=== PATIENT | male | born 1995 | race Two or more races ===

== ENCOUNTER 2017-09-21 06:46 | Emergency (ER) | payer OTHER ==
[2017-09-21 07:27] VITALS: TEMP 98; BMI 29.0
[2017-09-21] MEDS ORDERED: FAMOTIDINE 20 MG/50 ML IVPB 20 MG/50 ML MG IVPB ONE ×2 (07:42→08:12)
[2017-09-21] MEDS ORDERED: MAG HYDROX/AL HYDROX/SIMETH 355 ML ORAL.SUSP PO ONE (07:42)
[2017-09-21] MEDS ORDERED: SODIUM CHLORIDE 1,000 ML IV STA (07:42)
[2017-09-21] MEDS ORDERED: ONDANSETRON 4 MG/2 ML VIAL IVPUSH ONE (07:42)
--- NOTE | 2017-09-21 07:48 | PDOC ---
History of Present Illness - General Chief Complaint: Pain Stated Complaint: ABDOMINAL PAIN Time Seen by Provider: 09/21/17 07:35 History Source: Patient - History of Present Illness Timing/Duration: reports: getting worse Quality: reports: severe, cramping Abdominal Pain Onset Location: reports: generalized abdomen Past History - Past Medical History Allergies/Adverse Reactions: Allergies Allergy/AdvReac Type Severity Reaction Status Date / Time No Known Allergies Allergy Verified 09/21/17 07:27 Home Medications: Ambulatory Orders Famotidine [Pepcid] 20 mg PO DAILY #7 tablet 09/21/17 Mag Hydrox/Al Hydrox/Simeth [Mylanta Suspension -] 30 ml PO Q6H #1 bottle Polyethylene Glycol 3350 [Miralax (For Daily Use) -] 17 gm PO DAILY #1 bottle COPD: No Other medical history: denies - Suicide/Smoking/Psychosocial Hx Smoking History: Never smoked Information on smoking cessation initiated: No Hx Alcohol Use: No Drug/Substance Use Hx: No Substance Use Type: None Review of Systems - Review of Systems Constitutional: No: Chills, Fever ABD/GI: Yes: Nausea, Vomiting. No: Blood Streaked Bowels, Constipated, Diarrhea , Tarry Stools : No: Dysuria, Flank Pain, Hematuria *Physical Exam - Vital Signs Last Vital Signs Temp Pulse Resp BP Pulse Ox 98 F 89 18 144/85 98 09/21/17 07:25 09/21/17 07:25 09/21/17 07:25 09/21/17 07:25 09/21/17 07:25 - Physical Exam Comments: 09/21/17 07:46 appears uncomfortable General Appearance: Yes: Moderate Distress HEENT: positive: Normal Voice Neck: positive: Supple Respiratory/Chest: negative: Respiratory Distress Gastrointestinal/Abdominal: positive: Tender (to mid lower and LLQ, NT over mcburneys, no ttp to RUQ, no CVAT) Male Genitalia: positive: normal genitalia, discharge. negative: testicular mass Integumentary: positive: Dry, Warm Neurologic: positive: Fully Oriented, Alert, Normal Mood/Affect ED Treatment Course - LABORATORY CBC & Chemistry Diagram: 09/21/17 08:15 09/21/17 08:15 Medical Decision Making - Medical Decision Making 09/21/17 07:44 22-year-old male denies any past medical history here with abdominal pain. Patient reports 3 days of diffuse abdominal cramping that has been mostly constant. States it resolved yesterday, but then recurred this a.m. and getting worse. Has had multiple episodes of nausea, vomiting. Also c/o constipation w/ small hard stool this am but had normal BM 4 days ago. Denies BRBPR, melena, fever, chills, dysuria, hematuria, discharge, testicular pain or swelling. No history of similar symptoms and no unusual food. See exam Abd pain Possible gastritis vs constipation vs atypical appy vs less likely biliary disease vs less likely renal colic vs less likely diverticulitis -GI cocktail>reassess -labs -?CT 09/21/17 07:47 09/21/17 09:11 Wbc of 13, rest of labs unremarkable. Pt continues to c/o pain, Will get CT at this point 09/21/17 11:27 Possible mes[address]eric adenitis on CT, otherwise no acute pathology. Pt feels moderately better w/ meds. Anticipate discharge w/ PMD and possible GI f/u 09/21/17 12:44 Pt feels significantly better and feels well enough to go home. Will f/u with his pmd and GI as needed *DC/Admit/Observation/Transfer Diagnosis at time of Disposition: Abdominal pain Qualifiers: Abdominal location: generalized Qualified Code(s): R10.84 - Generalized abdominal pain - Discharge Dispostion Disposition: HOME Condition at time of disposition: Improved - Prescriptions Prescriptions: Famotidine [Pepcid] 20 mg PO DAILY #7 tablet Mag Hydrox/Al Hydrox/Simeth [Mylanta Suspension -] 30 ml PO Q6H #1 bottle Polyethylene Glycol 3350 [Miralax (For Daily Use) -] 17 gm PO DAILY #1 bottle - Referrals Referrals: Cody Griffiths MD [Primary Care Provider] - Terry Sood MD [Staff Physician] - - Patient Instructions Printed Discharge Instructions: DI for Abdominal Pain-Adult Additional Instructions: The cause of your abdominal pain is unclear at this time. Take medication as needed for pain If symptoms re-occur, follow up with Dr Sood of GI - Post Discharge Activity
[2017-09-21] MEDS ORDERED: MAG HYDROX/AL HYDROX/SIMETH 30 ML UNIT-DOSE CUP ONE (08:11)
[2017-09-21] MEDS ORDERED: ONDANSETRON 4 MG/2 ML VIAL ONE (08:11)
[2017-09-21 08:45] LABS: ALBUMIN 4.5 g/dl (3.4-5.0); ANION GAP 8 (8-16); BASOPHIL 0.2 % (0-2.0); BILIRUBIN,TOTAL 0.3 mg/dL (0.2-1.0); CALCIUM 9.7 mg/dL (8.5-10.1); CO2 29 mmol/L (21-32); EOSINOPHIL 1.7 % (0-4.5); GLUCOSE,RANDOM 95 mg/dL (74-106); MEAN CELL VOLUME 87.9 fl (80-96); MEAN PLT VOLUME 10.5 fl (7.5-11.1); PLATELET COUNT 165 K/MM3 (134-434); RDW 12.9 % (11.9-15.9); SGOT/AST 19 U/L (15-37); SGPT/ALT 33 U/L (12-78); TOT PROT 7.8 g/dl (6.4-8.2); WHITE BLOOD COUNT 13.6 K/mm3 (4.0-10.0)
[2017-09-21 08:46] LABS: ALK PHOS 98 U/L (45-117)
[2017-09-21 09:45] LABS: URINE APPEARANCE CLEAR; URINE BILIRUBIN NEGATIVE (NEGATIVE); URINE BLOOD NEGATIVE (NEGATIVE); URINE COLOR YELLOW; URINE GLUCOSE (UA) NEGATIVE (NEGATIVE); URINE KETONE NEGATIVE (NEGATIVE); URINE NITRITE NEGATIVE (NEGATIVE); URINE PROTEIN NEGATIVE (NEGATIVE); URINE UROBILINOGEN NEGATIVE mg/dL (0.2-1.0)
[2017-09-21] MEDS ORDERED: RANITIDINE HCL 150 MG TABLET (FP) PO ONE (11:27)
[2017-09-21] MEDS ORDERED: KETOROLAC TROMETHAMINE 30 MG/1 ML VIAL IM ONE (11:27)
[2017-09-21] MEDS ORDERED: KETOROLAC TROMETHAMINE 30 MG/1 ML VIAL IVPUSH ONE (11:29)
[2017-09-21] MEDS ORDERED: KETOROLAC TROMETHAMINE 30 MG/1 ML VIAL ONE (11:33)
[2017-09-21] MEDS ORDERED: RANITIDINE HCL 150 MG TABLET (FP) ONE (11:33)
[2017-09-21 12:46] VITALS: BP 137/88; PULSE 82
[2017-09-21 16:47] LABS: URINE LEUK ESTERASE Negative (NEGATIVE)
== END 2017-09-21 12:46 | disposition home or self-care (01) ==
LOC: JER 06:46
PROC: 3E033GC Introduction of Other Therapeutic Substance into Peripheral Vein, Percutaneous Approach (ICD-10-PCS; principal; 2017-09-21)
PROC: 3E0333Z Introduction of Anti-inflammatory into Peripheral Vein, Percutaneous Approach (ICD-10-PCS; 2017-09-21)
PROC: 3E033GC Introduction of Other Therapeutic Substance into Peripheral Vein, Percutaneous Approach (ICD-10-PCS; 2017-09-21)
DX: R10.84 Generalized abdominal pain (principal)
CPT/HCPCS: 36415; 74177-TC; 80053; 81003; 83690; 85025; 96365; 96375; 99283-25

== ENCOUNTER 2022-03-06 19:22 | Inpatient (IN) | payer OTHER ==
[2022-03-06] MEDS ORDERED: LIDOCAINE 5% TOPICAL PATCH TP ONE (19:47)
[2022-03-06] MEDS ORDERED: ACETAMINOPHEN 500 MG TABLET (FP) PO ONE (19:47)
[2022-03-06] MEDS ORDERED: KETOROLAC TROMETHAMINE 30 MG/1 ML VIAL IM ONE (19:47)
[2022-03-06] MEDS ORDERED: KETOROLAC TROMETHAMINE 30 MG/1 ML VIAL ONE (19:54)
[2022-03-06] MEDS ORDERED: LIDOCAINE 5% TOPICAL PATCH ONE (19:54)
[2022-03-06] MEDS ORDERED: ACETAMINOPHEN 500 MG TABLET (FP) ONE (20:02)
[2022-03-06] MEDS ORDERED: SODIUM CHLORIDE 0.9% 500 ML INFUS.BAG IV ONE (22:30)
[2022-03-06 22:38] LABS: BASO % 0.3 % (0-2.0); HEMATOCRIT 46.2 % (35.4-49); HEMOGLOBIN 15.5 GM/dL (11.7-16.9); LYMPH % 19.5 % (8-40); MCH 29.4 pg (25.7-33.7); MCHC 33.6 g/dl (32.0-35.9); MEAN CELL VOLUME 87.5 fl (80-96); MEAN PLT VOLUME 9.9 fl (7.5-11.1); MONO % 6.8 % (3.8-10.2); NEUT % 72.4 % (42.8-82.8); PLATELET COUNT 170 10^3/uL (134-434); RBC 5.28 M/mm3 (4.00-5.60); RDW 13.3 % (11.9-15.9); WHITE BLOOD COUNT 10.4 K/mm3 (4.0-10.0)
[2022-03-06] MEDS: LIDOCAINE PATCH REMOVAL MC SCH (22:43)
[2022-03-06 23:01] LABS: ALBUMIN 4.2 g/dl (3.4-5.0); BLOOD UREA NITROGEN 12.8 mg/dL (7-18); CALCIUM 9.2 mg/dL (8.5-10.1)
[2022-03-06 23:04] LABS: CREATININE 0.9 mg/dL (0.55-1.3)
[2022-03-06 23:06] LABS: BILIRUBIN,TOTAL 0.6 mg/dL (0.2-1); TOT PROT 7.3 g/dl (6.4-8.2)
[2022-03-06] MEDS ORDERED: DEXAMETHASONE SOD PHOSPHATE 10 MG/1 ML VIAL IVPUSH ONE (23:41)
[2022-03-06] MEDS ORDERED: DEXAMETHASONE SOD PHOSPHATE 10 MG/1 ML VIAL ONE (23:45)
[2022-03-07] MEDS ORDERED: VANCOMYCIN 1,000 MG VIAL (RESTRICTED TO ID ONLY) ONE (00:58)
[2022-03-07] MEDS ORDERED: methylPREDNISolone ACET (DEPO) 80 MG/1 ML VIAL ONE (00:58)
[2022-03-07] MEDS ORDERED: THROMBIN (BOVINE) 5,000 UNIT VIAL TP ONE ×2 (00:58→03:39)
[2022-03-07] MEDS ORDERED: BUPIVACAINE HCL/PF 0.5% (5MG/ML) 10 ML VIAL ONE (00:58)
[2022-03-07] MEDS ORDERED: BACITRACIN 15 GM TUBE TOPICAL OINTMENT ONE (00:58)
[2022-03-07] MEDS ORDERED: PROPOFOL 20 ML ONE ×5 (02:33→03:31)
[2022-03-07] MEDS ORDERED: MIDAZOLAM HCL 2 MG/2 ML SINGLE DOSE VIAL ONE (02:33)
[2022-03-07] MEDS ORDERED: ROCURONIUM BROMIDE 50 MG/5 ML SYRINGE ONE ×3 (02:34→02:35)
[2022-03-07 02:45] LABS: INR 0.94 (0.83-1.09); PROTHROMBIN TIME (PATIENT) 10.8 SEC (9.7-13.0)
[2022-03-07] MEDS ORDERED: ceFAZolin SODIUM 1 GM VIAL ONE ×3 (02:47→17:00)
[2022-03-07] MEDS ORDERED: ceFAZolin SODIUM 1 GM VIAL IVPB ONE (02:55)
[2022-03-07] MEDS ORDERED: BENZOIN/ALOE VERA/STORAX/TOLU 58 ML BOTTLE ONE (03:11)
[2022-03-07] MEDS ORDERED: BENZOIN/ALOE VERA/STORAX/TOLU 58 ML BOTTLE TP ONE (03:20)
[2022-03-07] MEDS ORDERED: DEXAMETHASONE SOD PHOSPHATE 4 MG/1 ML VIAL ONE (03:31)
[2022-03-07] MEDS ORDERED: DESFLURANE GAS 240 ML BOTTLE IH ONE (03:34)
[2022-03-07] MEDS ORDERED: ONDANSETRON 4 MG/2 ML VIAL ONE (03:36)
[2022-03-07] MEDS ORDERED: VANCOMYCIN 1 GM in D5W (PRE-DOCKED) 1,000 MG/250 ML IVPB ONE (03:47)
[2022-03-07] MEDS ORDERED: BUPIVACAINE HCL/PF 0.5% (5MG/ML) 10 ML VIAL IJ ONE ×2 (04:12→04:38)
[2022-03-07] MEDS ORDERED: LIDOCAINE HCL/PF 2% SDV 5ML VIAL ONE (04:24)
[2022-03-07] MEDS ORDERED: PHENYLEPHRINE HCL 10 MG/1 ML SINGLE DOSE VIAL ONE (04:28)
[2022-03-07] MEDS ORDERED: NEOSTIGMINE METHYLSULFATE 0.5 MG/1 ML - 10 ML MDV ONE (04:32)
[2022-03-07] MEDS ORDERED: GLYCOPYRROLATE 0.2 MG/1 ML VIAL ONE ×2 (04:32→04:34)
[2022-03-07] MEDS ORDERED: BISACODYL 10 MG SUPP.RECT RC PRN (04:57)
[2022-03-07] MEDS ORDERED: ACETAMINOPHEN 325 MG TABLET (FP) PO PRN (04:57)
[2022-03-07] MEDS ORDERED: ONDANSETRON 4 MG/2 ML VIAL IVPUSH PRN ×2 (04:57→05:53)
[2022-03-07] MEDS ORDERED: D5-1/2NS+20 MEQ KCL - 1,000 ML IV SCH (05:00)
[2022-03-07] MEDS ORDERED: D5-1/2NS+20 MEQ KCL - 20 MEQ/1,000 ML INFUS.BAG IV SCH (05:00)
[2022-03-07] MEDS: HYDROmorphone *PCA* 10MG/50ML DISP.SYRIN PCA SCH (06:00)
[2022-03-07] MEDS ORDERED: LACTATED RINGERS SOLUTION 1,000 ML IV SCH (06:00)
[2022-03-07] MEDS ORDERED: HYDROmorphone *PCA* 10MG/50ML DISP.SYRIN ONE (06:08)
[2022-03-07 06:39] LABS: HEMATOCRIT 46.6 % (35.4-49); HEMOGLOBIN 15.4 GM/dL (11.7-16.9); MCH 29.3 pg (25.7-33.7); MEAN CELL VOLUME 88.6 fl (80-96); MEAN PLT VOLUME 10.2 fl (7.5-11.1); PLATELET COUNT 175 10^3/uL (134-434); RBC 5.26 M/mm3 (4.00-5.60); RDW 13.2 % (11.9-15.9)
[2022-03-07 06:59] LABS: CALCIUM 9.2 mg/dL (8.5-10.1)
[2022-03-07 07:00] LABS: BLOOD UREA NITROGEN 13.3 mg/dL (7-18)
[2022-03-07 07:03] LABS: CREATININE 1.3 mg/dL (0.55-1.3)
[2022-03-07 08:40] VITALS: BMI 34.2
[2022-03-07] MEDS ORDERED: DEXTROSE 5%-WATER - 50 ML IVPB ONE ×2 (09:50→17:00)
[2022-03-07] MEDS: CEFAZOLIN 1 GM in DEXTROSE 5%-WATER - 50 ML IVPB SCH ×2 (10:09→17:57)
[2022-03-07] MEDS: diazePAM 5 MG TABLET PO SCH ×3 (10:10→22:17)
[2022-03-07] MEDS: DOCUSATE SODIUM 100 MG CAPSULE (FP) PO SCH ×3 (10:11→22:17)
[2022-03-07] MEDS: MUPIROCIN 2% TOPICAL OINTMENT FOR DECOLONIZATION NS SCH ×3 (12:58→22:19)
[2022-03-07] MEDS ORDERED: CHLORHEXIDINE GLUCONATE 4% CLEANSER FOR DECOLONIZATION TP SCH (22:00)
[2022-03-07] MEDS: LIDOCAINE PATCH REMOVAL MC SCH (22:17)
[2022-03-08] MEDS ORDERED: ceFAZolin SODIUM 1 GM VIAL ONE (01:33)
[2022-03-08] MEDS ORDERED: DEXTROSE 5%-WATER - 50 ML IVPB ONE (01:33)
[2022-03-08] MEDS: CEFAZOLIN 1 GM in DEXTROSE 5%-WATER - 50 ML IVPB SCH (02:39)
[2022-03-08] MEDS: diazePAM 5 MG TABLET PO SCH ×3 (06:34→21:55)
[2022-03-08] MEDS: DOCUSATE SODIUM 100 MG CAPSULE (FP) PO SCH ×3 (06:34→21:55)
[2022-03-08] MEDS: HYDROmorphone *PCA* 10MG/50ML DISP.SYRIN PCA SCH (06:35)
[2022-03-08 06:58] LABS: BASO % 0.1 % (0-2.0); HEMATOCRIT 43.7 % (35.4-49); HEMOGLOBIN 14.4 GM/dL (11.7-16.9); LYMPH % 19.6 % (8-40); MCH 29.3 pg (25.7-33.7); MEAN CELL VOLUME 88.8 fl (80-96); MONO % 7.4 % (3.8-10.2); NEUT % 72.9 % (42.8-82.8); PLATELET COUNT 171 10^3/uL (134-434); RBC 4.92 M/mm3 (4.00-5.60); RDW 13.5 % (11.9-15.9); WHITE BLOOD COUNT 13.4 K/mm3 (4.0-10.0)
[2022-03-08 07:25] LABS: ALBUMIN 3.6 g/dl (3.4-5.0); CREATININE 0.9 mg/dL (0.55-1.3); MAGNESIUM 2.5 mg/dL (1.8-2.4)
[2022-03-08 07:26] LABS: BILIRUBIN,TOTAL 0.6 mg/dL (0.2-1); TOT PROT 6.4 g/dl (6.4-8.2)
[2022-03-08 07:28] LABS: PHOSPHOROUS 3.7 mg/dL (2.5-4.9)
[2022-03-08] MEDS: MUPIROCIN 2% TOPICAL OINTMENT FOR DECOLONIZATION NS SCH (10:40)
[2022-03-08] MEDS ORDERED: ACETAMINOPHEN 325 MG TABLET (FP) PO PRN (17:43)
[2022-03-08] MEDS ORDERED: BISACODYL 10 MG SUPP.RECT RC PRN (17:43)
[2022-03-08] MEDS ORDERED: D5-1/2NS+20 MEQ KCL - 1,000 ML IV SCH (17:43)
[2022-03-08] MEDS ORDERED: HYDROmorphone *PCA* 10MG/50ML DISP.SYRIN PCA SCH (17:43)
[2022-03-08] MEDS ORDERED: ONDANSETRON 4 MG/2 ML VIAL IVPUSH PRN (17:43)
[2022-03-08] MEDS ORDERED: LIDOCAINE PATCH REMOVAL MC SCH (22:00)
[2022-03-08] MEDS ORDERED: CHLORHEXIDINE GLUCONATE 4% CLEANSER FOR DECOLONIZATION TP SCH (22:00)
[2022-03-09] MEDS: diazePAM 5 MG TABLET PO SCH ×3 (05:53→21:45)
[2022-03-09] MEDS: DOCUSATE SODIUM 100 MG CAPSULE (FP) PO SCH ×3 (05:53→21:45)
[2022-03-09 08:34] LABS: HEMATOCRIT 44.8 % (35.4-49); HEMOGLOBIN 15.2 GM/dL (11.7-16.9); MCH 30.1 pg (25.7-33.7); MCHC 33.8 g/dl (32.0-35.9); MEAN PLT VOLUME 9.4 fl (7.5-11.1); PLATELET COUNT 155 10^3/uL (134-434); RBC 5.03 M/mm3 (4.00-5.60); RDW 13.2 % (11.9-15.9); WHITE BLOOD COUNT 8.5 K/mm3 (4.0-10.0)
[2022-03-09] MEDS ORDERED: oxyCODONE HCL 5 MG TABLET PO PRN (08:54)
[2022-03-09 08:58] LABS: ALBUMIN 3.8 g/dl (3.4-5.0); BLOOD UREA NITROGEN 13.8 mg/dL (7-18); CALCIUM 9.5 mg/dL (8.5-10.1)
[2022-03-09 09:02] LABS: BILIRUBIN,TOTAL 0.6 mg/dL (0.2-1)
[2022-03-10] MEDS: diazePAM 5 MG TABLET PO SCH ×3 (05:27→22:48)
[2022-03-10] MEDS: DOCUSATE SODIUM 100 MG CAPSULE (FP) PO SCH ×3 (05:27→22:48)
[2022-03-10 08:35] LABS: HEMATOCRIT 46.6 % (35.4-49); HEMOGLOBIN 15.5 GM/dL (11.7-16.9); MCH 29.7 pg (25.7-33.7); MCHC 33.2 g/dl (32.0-35.9); MEAN CELL VOLUME 89.3 fl (80-96); MEAN PLT VOLUME 9.5 fl (7.5-11.1); PLATELET COUNT 185 10^3/uL (134-434); RBC 5.21 M/mm3 (4.00-5.60); RDW 13.4 % (11.9-15.9); WHITE BLOOD COUNT 9.4 K/mm3 (4.0-10.0)
[2022-03-10 09:06] LABS: BLOOD UREA NITROGEN 13.8 mg/dL (7-18); CALCIUM 9.6 mg/dL (8.5-10.1)
[2022-03-10 09:12] LABS: BILIRUBIN,TOTAL 0.9 mg/dL (0.2-1); TOT PROT 7.5 g/dl (6.4-8.2)
[2022-03-11] MEDS: DOCUSATE SODIUM 100 MG CAPSULE (FP) PO SCH ×3 (06:05→21:08)
[2022-03-11] MEDS: diazePAM 5 MG TABLET PO SCH ×3 (06:05→21:10)
[2022-03-11 09:46] LABS: HEMATOCRIT 48.5 % (35.4-49); HEMOGLOBIN 16.7 GM/dL (11.7-16.9); MCH 30.3 pg (25.7-33.7); MCHC 34.4 g/dl (32.0-35.9); MEAN CELL VOLUME 88.1 fl (80-96); MEAN PLT VOLUME 9.7 fl (7.5-11.1); PLATELET COUNT 193 10^3/uL (134-434); RDW 13.5 % (11.9-15.9); WHITE BLOOD COUNT 8.4 K/mm3 (4.0-10.0)
[2022-03-11 10:02] LABS: CALCIUM 9.9 mg/dL (8.5-10.1)
[2022-03-11 10:03] LABS: ALBUMIN 4.1 g/dl (3.4-5.0); BLOOD UREA NITROGEN 14.7 mg/dL (7-18)
[2022-03-11 10:06] LABS: CREATININE 0.9 mg/dL (0.55-1.3)
[2022-03-11 10:07] LABS: TOT PROT 7.9 g/dl (6.4-8.2)
[2022-03-11] MEDS ORDERED: MAGNESIUM CITRATE 300 ML BOTTLE PO ONE (10:32)
[2022-03-12] MEDS: DOCUSATE SODIUM 100 MG CAPSULE (FP) PO SCH ×3 (05:34→21:11)
[2022-03-12] MEDS: diazePAM 5 MG TABLET PO SCH ×3 (05:36→21:08)
[2022-03-12 09:03] LABS: BASO % 0.3 % (0-2.0); EOS % 2.5 % (0-4.5); HEMATOCRIT 47.7 % (35.4-49); HEMOGLOBIN 16.3 GM/dL (11.7-16.9); LYMPH % 19.8 % (8-40); MCHC 34.1 g/dl (32.0-35.9); MEAN CELL VOLUME 87.7 fl (80-96); MEAN PLT VOLUME 9.9 fl (7.5-11.1); MONO % 5.6 % (3.8-10.2); NEUT % 71.8 % (42.8-82.8); PLATELET COUNT 191 10^3/uL (134-434); RBC 5.44 M/mm3 (4.00-5.60); RDW 13.3 % (11.9-15.9); WHITE BLOOD COUNT 8.9 K/mm3 (4.0-10.0)
[2022-03-12 09:25] LABS: BLOOD UREA NITROGEN 14.1 mg/dL (7-18); CALCIUM 9.8 mg/dL (8.5-10.1)
[2022-03-12 09:26] LABS: CREATININE 0.9 mg/dL (0.55-1.3); MAGNESIUM 2.4 mg/dL (1.8-2.4)
[2022-03-12 09:30] LABS: PHOSPHOROUS 3.7 mg/dL (2.5-4.9)
[2022-03-13] MEDS: diazePAM 5 MG TABLET PO SCH ×3 (05:57→21:13)
[2022-03-13] MEDS: DOCUSATE SODIUM 100 MG CAPSULE (FP) PO SCH ×3 (05:57→21:14)
[2022-03-13 08:30] LABS: HEMATOCRIT 47.2 % (35.4-49); HEMOGLOBIN 15.8 GM/dL (11.7-16.9); MCH 29.7 pg (25.7-33.7); MCHC 33.5 g/dl (32.0-35.9); MEAN CELL VOLUME 88.4 fl (80-96); MEAN PLT VOLUME 10.1 fl (7.5-11.1); PLATELET COUNT 200 10^3/uL (134-434); RBC 5.34 M/mm3 (4.00-5.60); RDW 13.2 % (11.9-15.9); WHITE BLOOD COUNT 8.7 K/mm3 (4.0-10.0)
[2022-03-13 09:01] LABS: BLOOD UREA NITROGEN 16.2 mg/dL (7-18)
[2022-03-13 09:04] LABS: CALCIUM 9.9 mg/dL (8.5-10.1); CREATININE 0.8 mg/dL (0.55-1.3); MAGNESIUM 2.5 mg/dL (1.8-2.4); PHOSPHOROUS 3.7 mg/dL (2.5-4.9)
[2022-03-14] MEDS: DOCUSATE SODIUM 100 MG CAPSULE (FP) PO SCH ×2 (06:01→13:23)
[2022-03-14] MEDS: diazePAM 5 MG TABLET PO SCH ×2 (06:01→13:23)
[2022-03-14 09:26] LABS: BASO % 0.3 % (0-2.0); EOS % 1.7 % (0-4.5); HEMATOCRIT 46.4 % (35.4-49); HEMOGLOBIN 15.4 GM/dL (11.7-16.9); LYMPH % 15.6 % (8-40); MCH 29.5 pg (25.7-33.7); MCHC 33.2 g/dl (32.0-35.9); MEAN CELL VOLUME 88.6 fl (80-96); MEAN PLT VOLUME 9.6 fl (7.5-11.1); MONO % 5.8 % (3.8-10.2); NEUT % 76.6 % (42.8-82.8); PLATELET COUNT 204 10^3/uL (134-434); RBC 5.23 M/mm3 (4.00-5.60); RDW 13.1 % (11.9-15.9); WHITE BLOOD COUNT 7.6 K/mm3 (4.0-10.0)
[2022-03-14 09:52] LABS: CALCIUM 9.4 mg/dL (8.5-10.1)
[2022-03-14 09:53] LABS: BLOOD UREA NITROGEN 15.6 mg/dL (7-18)
[2022-03-14 09:56] LABS: CREATININE 0.9 mg/dL (0.55-1.3)
[2022-03-14 15:53] VITALS: BP 126/63; PULSE 98; TEMP 98.3
== END 2022-03-14 17:27 | disposition home health service (06) | DRG 23 ==
LOC: JER 19:22 → JERBED 23:43 → JICU 03-07 08:16 → J8W 03-08 17:09
PROVIDERS: ADMIT Internal Medicine; ATTEND Internal Medicine
PROC: 009T0ZZ Drainage of Spinal Meninges, Open Approach (ICD-10-PCS; 2022-03-07)
PROC: 4A11X4G Monitoring of Peripheral Nervous Electrical Activity, Intraoperative, External Approach (ICD-10-PCS; 2022-03-07)
PROC: 00NW0ZZ Release Cervical Spinal Cord, Open Approach (ICD-10-PCS; principal; 2022-03-07 00:25)
DX: I62.1 Nontraumatic extradural hemorrhage (principal); G95.20 Unspecified cord compression; K21.9 Gastro-esophageal reflux disease without esophagitis; M62.81 Muscle weakness (generalized); R20.0 Anesthesia of skin; F41.9 Anxiety disorder, unspecified
CPT/HCPCS: 36415; 70450-TC; 71045-TC-FY; 72125-TC; 72142-TC; 76000-TC-FY; 80048; 80053; 83735; 84100; 85025; 85027; 85610; 85730; 86850; 86900; 86901; 86922; 88304-TC; 93005; 93010; 94760; 97116-GP; 97161-GP; 99285-25; A9579; C9803-CS; J1100; U0003; U0005